=== PATIENT | female | born 1965 | race Caucasian/White ===

== ENCOUNTER 2019-03-28 08:37 | Emergency (ER) | payer BC ==
[2019-03-28 08:47] VITALS: BP 167/111; PULSE 70; RESP 20; TEMP 97.4
[2019-03-28] MEDS ORDERED: MORPHINE SULFATE 2 MG/ML SYRINGE IVP STA (09:18)
--- NOTE | 2019-03-28 09:48 | ED ---
Lower Extremity Injury HPI - General Chief Complaint: Extremity Injury, Lower Stated Complaint: Fall-leg/ankle injury Source: patient Mode of arrival: ambulatory Limitations: no limitations - History of Present Illness Initial Comments: 53-year-old female presenting for left ankle pain. Patient states that she was walking down stairs in her home when she slipped falling down a few steps. She states she fell on her bottom but mostly inverted her left ankle. Patient states she is pain swelling over the lateral aspect of patient denies numbness tingling or loss sensation of the ankle. States the pain increases when she ambulates, without radiation, sharp in nature. Patient denies any injury to the upper extremities or knees. Patient denies any injury to the head or neck. Patient states she has no back pain. Remaining review of systems negative. Upon arrival patient appears well no signs of acute distress. - Related Data Home Medications Medication Instructions Recorded Confirmed Eszopiclone [Lunesta] 3 mg PO HS 03/28/19 03/28/19 Levothyroxine Sodium [Synthroid] 88 mcg PO HS 03/28/19 03/28/19 Losartan Potassium 50 mg PO HS 03/28/19 03/28/19 Sertraline [Zoloft] 200 mg PO HS 03/28/19 03/28/19 Vortioxetine Hydrobromide 5 mg PO HS 03/28/19 03/28/19 [Trintellix] Allergies Allergy/AdvReac Type Severity Reaction Status Date / Time No Known Allergies Allergy Verified 03/28/19 09:38 Review of Systems ROS Statement: Those systems with pertinent positive or pertinent negative responses have been documented in the HPI. ROS Other: All systems not noted in ROS Statement are negative. Past Medical History Past Medical History: Thyroid Disorder History of Any Multi-Drug Resistant Organisms: None Reported Past Surgical History: Bariatric Surgery, Cholecystectomy Additional Past Surgical History / Comment(s): lap band 2007 Past Anesthesia/Blood Transfusion Reactions: No Reported Reaction Past Psychological History: Anxiety Smoking Status: Never smoker Past Alcohol Use History: None Reported Past Drug Use History: None Reported General Exam - General Exam Comments Initial Comments: General: The patient is awake and alert, in no distress, and does not appear acutely ill. Eye: +3 mm pupils are equal, round and reactive to light, extra-ocular movements are intact. No nystagmus. There is normal conjunctiva bilaterally. No signs of icterus. Ears, nose, mouth and throat: There are moist mucous membranes and no oral lesions. Cardiovascular: There is a regular rate and rhythm. No murmur, rub or gallop is appreciated. Respiratory: Lungs are clear to auscultation, respirations are non-labored, breath sounds are equal. No wheezes, stridor, rales, or rhonchi. Gastrointestinal: Soft, non-distended, non-tender abdomen without masses or organomegaly noted. There is no rebound or guarding present. Musculoskeletal: Normal inspection of the cervical thoracic and lumbar spine. There is no midline or paravertebral tenderness of the cervical thoracic or lumbar spine. Patient is able to fully range the C-spine with full flexion and extension and lateral flexion and rotation. On gross inspection of the ankles bilaterally there is soft tissue swelling of the left ankle or the lateral malleolus diffuse tenderness over the ankle joint including lateral and medial malleolus. Increasing pain with range of motion with inversion and eversion. Patient is able to fully range at the ankles bilaterally. Sensation intact proximal and distal to injury site equal comparison with the unaffected extremity. Patient does have a soft bristle compartments with +2 dorsalis pedis pulses equal and comparison bilaterally. No pain with compression of the distal tibia and fibula or palpation to the proximal tib-fib. No evidence of foot drop. Neurological: A&O x 3. CN II-XII intact grossly, There are no obvious motor or sensory deficits. Coordination appears grossly intact. Speech is normal. Skin: Skin is warm and dry and no rashes or lesions are noted. Psychiatric: Cooperative, appropriate mood & affect, normal judgment. Limitations: no limitations Course Vital Signs 03/28/19 08:44 Temperature 97.4 F L Pulse Rate 70 Respiratory 20 Rate Blood Pressure 167/111 O2 Sat by Pulse 99 Oximetry Medical Decision Making - Medical Decision Making Well-appearing 53-year-old female presenting for mechanical fall. Patient had an inversion injury of the left ankle. No evidence of acute fracture on imaging studies which were personally reviewed. Patient does not have any pain of the Lisfranc area no bruising on the plantar aspect of her left foot. Patient is able to weight-bear. This does increase the pain. Patient ankle was too large for an ankle stirrup and an Lamont bandage was placed instead. Patient provided prescription for crutches for comfort and given her primary care follow-up. If symptoms are persistent recommended repeat imaging studies and follow-up with with orthopedic surgery. Patient is provided work note. Rice instructions were discussed as well as importance of return parameters. Patient was discharged appearing well agreeable with care plan. Refused pain medications int he ER. Case was discussed with attending provided prior to discharge. Disposition Clinical Impression: Right ankle sprain, Ankle pain, Fall, Elevated blood pressure reading Disposition: HOME SELF-CARE Condition: Good Instructions (If sedation given, give patient instructions): Ankle Sprain (ED) Additional Instructions: Please use medication as discussed. Please follow-up with family doctor in the next 2 days, and if symptoms are persistent i recommend orthopedic evaluation. Please return to emergency room if the symptoms increase or worsen or for any other concerns. Is patient prescribed a controlled substance at d/c from ED?: No Referrals: Tiny Mariscal MD [Primary Care Provider] - 1-2 days Time of Disposition: 10:20
--- NOTE | 2019-03-28 09:49 | XR ---
EXAMINATION TYPE: XR ankle complete LT, XR foot complete LT DATE OF EXAM: 03/28/2019 CLINICAL HISTORY: Fall injury with pain. TECHNIQUE: Frontal, lateral and oblique images of the left ankle and foot are obtained. COMPARISON: None. FINDINGS: [id number] diffuse subcutaneous edema with more moderate to severe focal swelling ove r the lateral malleolus. There is no acute fracture/dislocation evident in the left ankle. The ankle mortise appears within normal limits. Moderate to large size inferior calcaneal spur. There is no acute fracture or dislocation evident in the left foot. The joint spaces in the left phil t are preserved. Mild diffuse subcutaneous edema. IMPRESSION: There is no acute fracture or dislocation in the left ankle or foot.
== END 2019-03-28 10:46 | disposition home or self-care (01) ==
LOC: EC 08:37
DX: S93.401A Sprain of unspecified ligament of right ankle, initial encounter (principal); R03.0 Elevated blood-pressure reading, without diagnosis of hypertension; E07.9 Disorder of thyroid, unspecified; F41.9 Anxiety disorder, unspecified; Z79.899 Other long term (current) drug therapy; W10.9XXA Fall (on) (from) unspecified stairs and steps, initial encounter; Y93.01 Activity, walking, marching and hiking; Y92.009 Unspecified place in unspecified non-institutional (private) residence as the place of occurrence of the external cause
CPT/HCPCS: 29515; 99283

== ENCOUNTER 2021-11-12 22:55 | Inpatient (IN) | payer BC ==
--- NOTE | 2021-11-12 23:52 | ED ---
General Adult HPI - General Chief complaint: Weakness Stated complaint: Blurred Vision Time Seen by Provider: 11/12/21 23:35 Source: patient, EMS Mode of arrival: EMS - History of Present Illness Initial comments: This patient is a 55-year-old woman who presents by ambulance to be evaluated for constellation of symptoms that started just before 9:30 tonight while she was talking with her . History is from the patient and who is at the bedside. He reports that she appeared to be breathing rapidly at the onset of symptoms. The patient noticed that her face and her left hand were tingling. She felt like she was having some double vision. The patient is having some left thigh spasms as well. Patient denied any pain. She has not noted any weakness. She was not having slurred speech but states she was having to think very hard about what she wanted to say. Onset/Timin -: minutes(s) Location: face Consistency: now resolved Improves with: none Worsens with: none Associated Symptoms: confusion, other Treatments Prior to Arrival: none - Related Data Home Medications Medication Instructions Recorded Confirmed Levothyroxine Sodium [Synthroid] 88 mcg PO DAILY 03/28/19 11/13/21 Acetaminophen [Tylenol Arthritis] 1,300 mg PO DAILY 11/13/21 11/13/21 Acetaminophen/Diphenhydramine 1 tab PO HS 11/13/21 11/13/21 [Tylenol PM 500-25mg] Ibuprofen [Motrin Ib] 800 mg PO Q8H PRN 11/13/21 11/13/21 Lisinopril [Zestril] 10 mg PO DAILY 11/13/21 11/13/21 Vortioxetine Hydrobromide 20 mg PO HS 11/13/21 11/13/21 [Trintellix] hydrOXYzine HCL [Atarax] 50 mg PO HS 11/13/21 11/13/21 hydroCHLOROthiazide [Hydrodiuril] 25 mg PO DAILY 11/13/21 11/13/21 Previous Rx's Medication Instructions Recorded Aspirin 81 mg PO DAILY 30 Days #30 11/14/21 Atorvastatin [Lipitor] 80 mg PO HS 30 Days #30 tab 11/14/21 Ticagrelor [Brilinta] 90 mg PO BID 30 Days #60 tab 11/14/21 Allergies Allergy/AdvReac Type Severity Reaction Status Date / Time egg AdvReac Nausea & Verified 11/13/21 11:43 Vomiting Review of Systems ROS Statement: Those systems with pertinent positive or pertinent negative responses have been documented in the HPI. ROS Other: All systems not noted in ROS Statement are negative. Constitutional: Denies: fever, chills, weakness Eyes: Reports: vision change. Denies: eye pain ENT: Denies: hearing loss Respiratory: Reports: dyspnea (Now resolved). Denies: cough, wheezes Cardiovascular: Denies: chest pain, palpitations, edema, syncope Gastrointestinal: Denies: abdominal pain, vomiting, diarrhea Genitourinary: Denies: dysuria, hematuria Musculoskeletal: Denies: back pain Skin: Denies: rash Neurological: Reports: paresthesias, confusion. Denies: headache, weakness Psychiatric: Reports: anxiety Past Medical History Past Medical History: Hypertension, Thyroid Disorder History of Any Multi-Drug Resistant Organisms: None Reported Past Surgical History: Bariatric Surgery, Cholecystectomy Additional Past Surgical History / Comment(s): lap band 2008 Past Anesthesia/Blood Transfusion Reactions: No Reported Reaction Past Psychological History: Anxiety Smoking Status: Never smoker Past Alcohol Use History: None Reported Past Drug Use History: None Reported - Past Family History Mother Family Medical History: CVA/TIA family Family Medical History: No Reported History General Exam General appearance: alert, in no apparent distress Head exam: Present: atraumatic, normocephalic Eye exam: Present: normal appearance, PERRL, EOMI. Absent: scleral icterus, conjunctival injection, nystagmus ENT exam: Present: mucous membranes dry Neck exam: Present: normal inspection, full ROM. Absent: tenderness, menin gismus Respiratory exam: Present: normal lung sounds bilaterally. Absent: respiratory distress, wheezes, rales, rhonchi, stridor Cardiovascular Exam: Present: regular rate, normal rhythm, normal heart sounds. Absent: systolic murmur, diastolic murmur, rubs, gallop GI/Abdominal exam: Present: soft. Absent: distended, tenderness, guarding, rebound, rigid, mass Extremities exam: Present: normal inspection, normal capillary refill. Absent: pedal edema, calf tenderness Back exam: Present: normal inspection. Absent: CVA tenderness (R), CVA tenderness (L) Neurological exam: Present: alert, oriented X3, CN II-XII intact. Absent: motor sensory deficit Skin exam: Present: warm, dry, intact, normal color. Absent: rash Course Vital Signs 11/12/21 11/13/21 11/13/21 23:04 00:06 01:00 Pulse Rate 80 74 83 Respiratory 20 18 18 Rate Blood Pressure 196/88 180/84 181/81 O2 Sat by Pulse 99 96 96 Oximetry 11/13/21 11/13/21 01:54 03:10 Pulse Rate 80 78 Respiratory 18 18 Rate Blood Pressure 181/98 155/84 O2 Sat by Pulse 99 95 Oximetry EKG Findings - EKG Results: EKG: interpreted by POLINA VARGAS, sinus rhythm (Rate 75 bpm), normal axis, normal QRS, normal ST/T Medical Decision Making - Medical Decision Making Patient's 55-year-old woman presenting with symptoms concerning for acute CVA. I patient has workup performed here. I did discuss case with stroke team. After discussion of the patient's case, it is felt that due to the time since onset of symptoms that TPA would represent increased risk of bleeding versus the possible benefit of administration. Patient is admitted for further neurologic evaluation and also patient started on antiplatelet therapy per the stroke team recommendations. - Lab Data Result diagrams: 11/13/21 07:00 11/13/21 07:00 Lab Results 11/12/21 11/12/21 11/12/21 Range/Units 23:54 23:54 23:54 WBC 6.2 (3.8-10.6) k/uL RBC 4.61 (3.80-5.40) m/uL Hgb 13.7 (11.4-16.0) gm/dL Hct 41.6 (34.0-46.0) % MCV 90.1 (80.0-100.0) fL MCH 29.6 (25.0-35.0) pg MCHC 32.9 (31.0-37.0) g/dL RDW 13.1 (11.5-15.5) % Plt Count 229 (150-450) k/uL MPV 8.6 Neutrophils % 54 % Lymphocytes % 29 % Monocytes % 7 % Eosinophils % 7 % Basophils % 0 % Neutrophils # 3.4 (1.3-7.7) k/uL Lymphocytes # 1.8 (1.0-4.8) k/uL Monocytes # 0.5 (0-1.0) k/uL Eosinophils # 0.4 (0-0.7) k/uL Basophils # 0.0 (0-0.2) k/uL PT 10.6 (9.0-12.0) sec INR 1.0 (<1.2) APTT 22.6 (22.0-30.0) sec Sodium 137 (137-145) mmol/L Potassium 4.4 (3.5-5.1) mmol/L Chloride 104 (98-107) mmol/L Carbon Dioxide 28 (22-30) mmol/L Anion Gap 5 mmol/L BUN 17 (7-17) mg/dL Creatinine 0.83 (0.52-1.04) mg/dL Est GFR (CKD-EPI)AfAm >90 (>60 ml/min/1.73 sqM) Est GFR (CKD-EPI)NonAf 80 (>60 ml/min/1.73 sqM) Glucose 107 H (74-99) mg/dL Calcium 8.4 (8.4-10.2) mg/dL Total Bilirubin 0.7 (0.2-1.3) mg/dL AST 28 (14-36) U/L ALT 21 (4-34) U/L Alkaline Phosphatase 54 (38-126) U/L Troponin I (0.000-0.034) ng/mL Total Protein 7.2 (6.3-8.2) g/dL Albumin 4.0 (3.5-5.0) g/dL 11/12/21 Range/Units 23:54 WBC (3.8-10.6) k/uL RBC (3.80-5.40) m/uL Hgb (11.4-16.0) gm/dL Hct (34.0-46.0) % MCV (80.0-100.0) fL MCH (25.0-35.0) pg MCHC (31.0-37.0) g/dL RDW (11.5-15.5) % Plt Count (150-450) k/uL MPV Neutrophils % % Lymphocytes % % Monocytes % % Eosinophils % % Basophils % % Neutrophils # (1.3-7.7) k/uL Lymphocytes # (1.0-4.8) k/uL Monocytes # (0-1.0) k/uL Eosinophils # (0-0.7) k/uL Basophils # (0-0.2) k/uL PT (9.0-12.0) sec INR (<1.2) APTT (22.0-30.0) sec Sodium (137-145) mmol/L Potassium (3.5-5.1) mmol/L Chloride (98-107) mmol/L Carbon Dioxide (22-30) mmol/L Anion Gap mmol/L BUN (7-17) mg/dL Creatinine (0.52-1.04) mg/dL Est GFR (CKD-EPI)AfAm (>60 ml/min/1.73 sqM) Est GFR (CKD-EPI)NonAf (>60 ml/min/1.73 sqM) Glucose (74-99) mg/dL Calcium (8.4-10.2) mg/dL Total Bilirubin (0.2-1.3) mg/dL AST (14-36) U/L ALT (4-34) U/L Alkaline Phosphatase (38-126) U/L Troponin I <0.012 (0.000-0.034) ng/mL Total Protein (6.3-8.2) g/dL Albumin (3.5-5.0) g/dL Critical Care Time Critical Care Time: Yes (30 minutes) Disposition Clinical Impression: Ischemic stroke Disposition: ADMITTED IP TO THIS HOSP Condition: Fair
[2021-11-13] LABS: Basophils % (A) 0 %; Eosinophils % (A) 7 %; HCT 41.6 % (34.0-46.0); HGB 13.7 gm/dL (11.4-16.0); Lymphocytes % (A) 29 %; MCH 29.6 pg (25.0-35.0); MCHC 32.9 g/dL (31.0-37.0); MCV 90.1 fL (80.0-100.0); Mean Platelet Volume 8.6; Monocytes % (A) 7 %; Neutrophils % (A) 54 %; Platelet Count 229 k/uL (150-450); RBC 4.61 m/uL (3.80-5.40); RDW 13.1 % (11.5-15.5); WBC 6.2 k/uL (3.8-10.6)
[2021-11-13 00:01] LABS: Eosinophils # (A) 0.4 k/uL (0-0.7); Lymphocytes # (A) 1.8 k/uL (1.0-4.8); Monocytes # (A) 0.5 k/uL (0-1.0); Neutrophils # (A) 3.4 k/uL (1.3-7.7)
[2021-11-13 00:16] LABS: Partial Thromboplastin Time 22.6 sec (22.0-30.0); Prothrombin Time 10.6 sec (9.0-12.0)
[2021-11-13 00:18] LABS: ALT 21 U/L (4-34); African American GFR (CKD) >90 (>60 ml/min/1.73 sqM); Anion Gap 5 mmol/L; Blood Urea Nitrogen 17 mg/dL (7-17); Calcium 8.4 mg/dL (8.4-10.2); Carbon Dioxide 28 mmol/L (22-30); Chloride 104 mmol/L (98-107); Glucose 107 mg/dL (74-99); Non-African American GFR(CKD) 80 (>60 ml/min/1.73 sqM); Sodium 137 mmol/L (137-145); Total Bilirubin 0.7 mg/dL (0.2-1.3); Total Protein 7.2 g/dL (6.3-8.2)
--- NOTE | 2021-11-13 00:19 | CT ---
EXAMINATION TYPE: CT brain wo con for TPA DATE OF EXAM: 11/13/2021 COMPARISON: None HISTORY: BLURRED VISION, AMS CT DLP: 1083.1 mGycm Automated exposure control for dose reduction was used. Ventricles have normal size. There is no mass effect or midline shift. There is no sign of intracrani al hemorrhage. No evidence of cerebral edema. Calvarium is intact. Mastoid sinuses appear normal. IMPRESSION: Negative unenhanced head CT scan.
[2021-11-13 00:22] LABS: AST 28 U/L (14-36); Alkaline Phosphatase 54 U/L (38-126); Potassium 4.4 mmol/L (3.5-5.1)
--- NOTE | 2021-11-13 00:46 | XR ---
EXAMINATION TYPE: XR chest 1V DATE OF EXAM: 11/13/2021 COMPARISON: NONE HISTORY: Altered mental status TECHNIQUE: Single view FINDINGS: Heart size is normal. Lungs are clear. Diaphragm is normal. Bony thorax is intact. There is a right-sided aortic arch. No heart failure. IMPRESSION: No active cardiopulmonary disease.
--- NOTE | 2021-11-13 00:51 | CT ---
EXAMINATION TYPE: CT angio head neck DATE OF EXAM: 11/13/2021 COMPARISON: None HISTORY: AMS, BLURRED VISION, TIINGLING LT ARM CT DLP: 807 mGycm Automated exposure control for dose reduction was used. CONTRAST: Performed with IV Contrast, patient injected with 65 mL of Isovue 370. Images obtained from the aortic arch to the vertex of the brain with IV contrast. There are Three-D p ostprocessed images. There is right-sided aortic arch with aberrant left subclavian artery which is posterior to the esoph joe. No evidence of aneurysm or dissection. There is arterial flow in both subclavian arteries. Ther e is arterial flow in the common internal and external carotid arteries bilaterally. There is wide pa tency of the carotid artery bifurcations. There is arterial flow in both vertebral arteries. There is arterial flow in the vertebral basilar artery system. There is no evidence of carotid or vertebral artery aneurysm or dissection. There is arterial flow in the anterior middle and posterior cerebral arteries. No mass effect. No arnie dence of intracranial aneurysm or neovascularity. There is severe stenosis of the proximal right post erior cerebral artery near the basilar artery. There is 9 mm segment of involvement. There is normal enhancement of the venous sinuses. 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 Normal CT angiogram of the neck. Aberrant left subclavian artery with right sided aortic arch.
[2021-11-13] MEDS ORDERED: MORPHINE SULFATE 4 MG/ML SYRINGE IV STA (01:22)
[2021-11-13] MEDS ORDERED: TICAGRELOR 90 MG TAB PO STA (02:09)
[2021-11-13] MEDS ORDERED: ASPIRIN 81 MG PO STA (02:09)
[2021-11-13] MEDS ORDERED: ACETAMINOPHEN TAB 325 MG TAB PO PRN (02:19)
[2021-11-13] MEDS: SODIUM CHLORIDE 0.9% 1,000 ML IV SCH ×3 (03:30→23:33)
--- NOTE | 2021-11-13 04:27 | P.HPIM ---
History of Present Illness H&P Date: 11/13/21 Chief Complaint: vision changes headache 55 year old female with hypertension patient comes in due to vision changes , tingling around the mouth and left hand, confusion . she denies any history of head injury, stroke, heart disease. afib, or blood clots. denies any recent illness. in the ED most of her symptoms were resolved, but for left eye visual field defect. workup in the ED showed subtotal occlusion of the post cerebral artery , patient was not given tpa in the ED. Review of Systems Pertinent positives as noted in HPI. All other systems were reviewed and are negative Past Medical History Past Medical History: Hypertension, Thyroid Disorder History of Any Multi-Drug Resistant Organisms: None Reported Past Surgical History: Bariatric Surgery, Cholecystectomy Additional Past Surgical History / Comment(s): lap band 2008 Past Anesthesia/Blood Transfusion Reactions: No Reported Reaction Past Psychological History: Anxiety Smoking Status: Never smoker Past Alcohol Use History: None Reported Past Drug Use History: None Reported - Past Family History family Family Medical History: No Reported History Medications and Allergies Home Medications Medication Instructions Recorded Confirmed Type Eszopiclone [Lunesta] 3 mg PO HS 03/28/19 03/28/19 History Levothyroxine Sodium [Synthroid] 88 mcg PO HS 03/28/19 03/28/19 History Losartan Potassium 50 mg PO HS 03/28/19 03/28/19 History Sertraline [Zoloft] 200 mg PO HS 03/28/19 03/28/19 History Vortioxetine Hydrobromide 5 mg PO HS 03/28/19 03/28/19 History [Trintellix] Allergies Allergy/AdvReac Type Severity Reaction Status Date / Time No Known Allergies Allergy Verified 03/28/19 09:38 Physical Exam Vitals: Vital Signs Pulse Resp BP Pulse Ox 11/13/21 01:54 80 18 181/98 99 11/13/21 01:00 83 18 181/81 96 11/13/21 00:06 74 18 180/84 96 11/12/21 23:04 80 20 196/88 99 Intake and Output 11/12/21 11/12/21 11/13/21 14:59 22:59 06:59 Other: Weight 138.346 kg Constitutional: No acute distress, conversant, pleasant Eyes: Anicteric sclerae, moist conjunctiva, Pupils equal round reactive to light ENMT: NC/AT Oropharynx clear, no erythema, or exudates Neck: Supple, FROM, no masses, or JVD No carotid bruits No thyromegaly Lungs: Clear to auscultation Clear to percussion Normal respiratory effort, no accessory muscle use Cardiovascular: Heart regular in rate and rhythm, No murmurs, gallops, or rubs No peripheral edema Abdominal: Soft Nontender, no guarding, rebound or rigidity Abdomen moving with respiration Normoactive bowel sounds No hepatomegaly, No splenomegaly No palpable mass No abdominal wall hernia noted Skin: Normal temperature, tone, texture, turgor No induration No subcutaneous nodules No rash, lesions No ulcers Extremities: No digital cyanosis No clubbing Pedal pulses intact and symmetrical Radial pulses intact and symmetrical No calf tenderness Psychiatric: Alert and oriented to person, place and time Appropriate affect fair judgement Neuro Muscles Strength 5/5 in all 4 extremities Sensation to light touch grossly present throughout Cranial nerves II-XII grossly intact, exxcept for CN II on the left with partial visual field defect No focal sensory deficits Lymphatics: no palpable cervical or supraclavicular , or inguinal lymph nodes Results CBC & Chem 7: 11/12/21 23:54 11/12/21 23:54 Labs: Abnormal Lab Results - Last 24 Hours (Table) 11/12/21 Range/Units 23:54 Glucose 107 H (74-99) mg/dL Assessment and Plan Assessment: ischemic stroke subtotal occlusion of the proximal right post cerebral artery incidental finding of right aortic arch plan allow permissive hypertension 24-48 hours neuro checks q2hr ASA, statin brilinta lipid panel a1c tsh echocardiogram fall precautions PT eval full code DVT PPX mechanical anticipated length of stay < 2 midnights
[2021-11-13] MEDS ORDERED: ONDANSETRON 4 MG/2 ML VIAL IVP STA (06:24)
[2021-11-13 07:19] LABS: Basophils % (A) 0 %; Eosinophils # (A) 0.1 k/uL (0-0.7); Eosinophils % (A) 1 %; HCT 40.9 % (34.0-46.0); HGB 13.1 gm/dL (11.4-16.0); Lymphocytes # (A) 0.6 k/uL (1.0-4.8); Lymphocytes % (A) 8 %; MCH 29.4 pg (25.0-35.0); MCHC 31.9 g/dL (31.0-37.0); MCV 92.1 fL (80.0-100.0); Mean Platelet Volume 8.2; Monocytes # (A) 0.1 k/uL (0-1.0); Monocytes % (A) 2 %; Neutrophils # (A) 6.7 k/uL (1.3-7.7); Neutrophils % (A) 89 %; Platelet Count 207 k/uL (150-450); RBC 4.44 m/uL (3.80-5.40); RDW 12.5 % (11.5-15.5); WBC 7.6 k/uL (3.8-10.6)
[2021-11-13 07:34] LABS: Potassium 4.3 mmol/L (3.5-5.1)
[2021-11-13 07:35] LABS: ALT 20 U/L (4-34); AST 22 U/L (14-36); African American GFR (CKD) >90 (>60 ml/min/1.73 sqM); Albumin 3.7 g/dL (3.5-5.0); Alkaline Phosphatase 57 U/L (38-126); Anion Gap 6 mmol/L; Blood Urea Nitrogen 13 mg/dL (7-17); Calcium 8.1 mg/dL (8.4-10.2); Carbon Dioxide 25 mmol/L (22-30); Chloride 104 mmol/L (98-107); Glucose 137 mg/dL (74-99); Non-African American GFR(CKD) >90 (>60 ml/min/1.73 sqM); Sodium 135 mmol/L (137-145); Total Bilirubin 0.6 mg/dL (0.2-1.3); Total Protein 6.6 g/dL (6.3-8.2)
[2021-11-13] MEDS: FAMOTIDINE 20 MG TAB PO SCH ×2 (07:45→19:57)
[2021-11-13] MEDS: DOCUSATE 100 MG CAP PO SCH ×3 (07:45→23:33)
--- NOTE | 2021-11-13 12:39 | CA ---
Transthoracic Echo Report Name: Gretta Brunson Age: 55 Gender: F : 1965 Exam Date: 11/13/2021 07:26 Exam Location: [facility] Ht (in): 66 Wt (lb): 305 Ordering Physician: Devon Basurto MD Attending/Referring Phys: Therapeutic Recreation Specialist Tiny Arreola RDCS Procedure CPT: Indications: Thrombus Cardiac Hx: No cardiac hx Technical Quality: Technically difficult study Contrast 1: Lumason Total Dose (mL): .25 Contrast 2: Total Dose (mL): MEASUREMENTS (Male / Female) Normal Values 2D ECHO LV Diastolic Diameter PLAX 2.8 cm 4.2 - 5.9 / 3.9 - 5.3 cm LV Systolic Diameter PLAX 1.7 cm IVS Diastolic Thickness 1.6 cm 0.6 - 1.0 / 0.6 - 0.9 cm LVPW Diastolic Thickness 1.8 cm 0.6 - 1.0 / 0.6 - 0.9 cm LV Relative Wall Thickness 1.2 RV Internal Dim ED PLAX 2.8 cm M-MODE Aortic Root Diameter MM 3.3 cm LA Systolic Diameter MM 3.3 cm LA Ao Ratio MM 1.0 MV E Point Septal Separation 0.3 cm AV Cusp Separation MM 2.1 cm DOPPLER AV Peak Velocity 143.9 cm/s AV Peak Gradient 8.3 mmHg MV Area PHT 3.6 cm MR Peak Velocity 155.1 cm/s MR Peak Gradient 9.6 mmHg Mitral E Point Velocity 109.1 cm/s Mitral A Point Velocity 98.4 cm/s Mitral E to A Ratio 1.1 MV Deceleration Time 210.6 ms TR Peak Velocity 137.6 cm/s TR Peak Gradient 7.6 mmHg Right Ventricular Systolic Press 12.0 mmHg FINDINGS Left Ventricle Severe LVH .Normal Left ventricular size, systolic function with no obvious regional wall motion abnormalities. Normal Left ventricular diastolic filling pattern. Left ventricular ejection fraction is estimated at 55-60 %. Right Ventricle The right ventricle is normal in size and function. Right Atrium The right atrium is normal in size. Left Atrium The left atrium is normal in size. Mitral Valve Structurally normal mitral valve without significant stenosis or prolapse. There is a trace of mitral regurgitation. Aortic Valve Structurally normal aortic valve without significant sclerosis or stenosis. There is no aortic regurgitation. Tricuspid Valve Structurally normal tricuspid valve without significant stenosis. Pulmonary artery systolic pressure is normal. Trace tricuspid regurgitation. Pulmonic Valve Structurally normal pulmonic valve without significant stenosis. There is no pulmonic regurgitation. Pericardium Normal pericardium without effusion. Aorta Normal aortic root dimension. CONCLUSIONS Normal LV systolic function Previewed by: Dr. Ilia Farias MD (Electronically Signed) Final Date: 13 November 2021 12:38
--- NOTE | 2021-11-13 15:34 | P.PN ---
Progress Note - Text Progress Note Date: 11/13/21 Patient seen and examined, her symptoms seemed to have improved. Left eye vision has improved. Speech is currently clear. Awaiting brain MRI, neurology evaluation.
--- NOTE | 2021-11-13 16:40 | P.CNNES ---
History of Present Illness Consult date: 11/13/21 Reason for Consult: left vision loss, possible stroke History of Present Illness: The patient is a 55-year-old female who is seen in neurologic consultation on November 13, 2021, via teleneurology. The patient reports that she was sitting at home having a conversation with her when she suddenly heard a "loud hissing" sound in her ears. She felt as if she might pass out. She states that she then stood up and felt "faint". She sat back down. Because of the sudden onset of these symptoms, the patient and her decided to come into the emergency department. Patient states that she has had similar symptoms when she has suspected that that she is hypoglycemic. The patient reports that she had a "halo" around her left eye. In the emergency department, the patient reports difficulty with word finding. In addition, the patient reports having a tingling sensation involving her face, lips, 2 fingers of her left hand and her left great toe. All of the symptoms resolved, after several hours, except the reported "halo" sensation. The patient states that this was still present until about 30 minutes ago. The visual symptoms resolved after the patient had "food, orange juice and Pepsi". Today, the patient reports having light sensitivity and a mild headache. Yesterday the headache was more severe. The patient denies a history of headaches. Workup in the emergency department revealed a CT scan of the brain, negative for acute hemorrhage and infarct. 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 Past Medical History Past Medical History: Hypertension, Thyroid Disorder History of Any Multi-Drug Resistant Organisms: None Reported Past Surgical History: Bariatric Surgery, Cholecystectomy Additional Past Surgical History / Comment(s): lap band 2007 Past Anesthesia/Blood Transfusion Reactions: No Reported Reaction Past Psychological History: Anxiety Smoking Status: Never smoker Past Alcohol Use History: None Reported Past Drug Use History: None Reported - Past Family History Mother Family Medical History: CVA/TIA family Family Medical History: No Reported History Medications and Allergies Home Medications Medication Instructions Recorded Confirmed Type Levothyroxine Sodium [Synthroid] 88 mcg PO DAILY 03/28/19 11/13/21 History Acetaminophen [Tylenol Arthritis] 1,300 mg PO DAILY 11/13/21 11/13/21 History Acetaminophen/Diphenhydramine 1 tab PO HS 11/13/21 11/13/21 History [Tylenol PM 500-25mg] Ibuprofen [Motrin Ib] 800 mg PO Q8H PRN 11/13/21 11/13/21 History Lisinopril [Zestril] 10 mg PO DAILY 11/13/21 11/13/21 History Vortioxetine Hydrobromide 20 mg PO HS 11/13/21 11/13/21 History [Trintellix] hydrOXYzine HCL [Atarax] 50 mg PO HS 11/13/21 11/13/21 History hydroCHLOROthiazide [Hydrodiuril] 25 mg PO DAILY 11/13/21 11/13/21 History Allergies Allergy/AdvReac Type Severity Reaction Status Date / Time egg AdvReac Nausea & Verified 11/13/21 11:43 Vomiting Physical Examination - Vital Signs Vital Signs: Vital Signs Temp Pulse Pulse Resp BP BP Pulse Ox 11/13/21 12:00 97.8 F 96 16 158/93 97 11/13/21 08:00 97.9 F 82 18 145/89 99 11/13/21 03:48 97.9 F 83 18 162/97 95 11/13/21 03:10 78 18 155/84 95 11/13/21 01:54 80 18 181/98 99 11/13/21 01:00 83 18 181/81 96 11/13/21 00:06 74 18 180/84 96 11/12/21 23:04 80 20 196/88 99 Intake and Output 11/12/21 11/13/21 11/13/21 22:59 06:59 14:59 Other: Voiding Method Toilet # Voids 1 Weight 138.346 kg Gen.: The patient is reclining in the bed. She is in no acute distress. She is obese. HEENT: Head is atraumatic, normocephalic. Fundus not visualized. There is no scleral icterus. Mucous membranes are moist. Neck: Supple without carotid bruits Heart: Regular rate and rhythm without murmur Lungs: Clear to auscultation Extremities: Without edema Neurological examination Mental status: The patient is awake, alert and oriented 3. Her speech is anisa ar. There is no dysarthria or aphasia. Judgment and insight are intact. Cranial nerves: Pupils are equal at 3 mm and reactive. Visual akhtar are full. Extraocular movements are intact. There is no nystagmus. Facial sensation is intact. There is no facial asymmetry. Hearing is grossly intact. Uvula and palate are midline. Shoulder shrug is symmetric. Tongue protrudes midline. Motor: Strength is 5/5 throughout. Sensation: Intact to light touch throughout. There is no extinction with double simultaneous stimulation. Coordination: Finger to nose, rapid alternating movements and [id number] testing is intact Deep tendon reflexes: 2+/4+ throughout. Plantar responses are flexor bilate rally. Gait: Not assessed Results - Laboratory Findings CBC and BMP: 11/13/21 07:00 11/13/21 07:00 Abnormal Lab Findings: Abnormal Labs 11/12/21 11/13/21 11/13/21 23:54 07:00 07:00 Lymphocytes # 0.6 L Sodium 135 L Glucose 107 H 137 H Calcium 8.1 L Assessment and Plan Assessment: 1. Acute neurologic deficits, resolved-possible transient ischemic attack versus hypertensive urgency versus hypoglycemia 2. 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 vascular surgery consultation or interventional neurology (through [facility]) for right posterior artery stenosis 2. Agree with Brilinta 90mg 3. High intensity statin should be initiated 4. MRI of brain 5. Stroke/TIA workup including 2-D echocardiogram, lipid panel, hemoglobin A1c Time with Patient: Greater than 30 (Spent 40 minutes with patient via telemedicine)
[2021-11-13] MEDS: TICAGRELOR 90 MG TAB PO SCH (19:57)
[2021-11-13] MEDS: ATORVASTATIN 80 MG TAB PO SCH (19:57)
[2021-11-13] MEDS ORDERED: VORTIOXETINE HYDROBROMIDE 10 MG TABLET PO SCH (21:00)
[2021-11-13] MEDS ORDERED: TEMAZEPAM 15 MG CAP PO SCH (21:00)
[2021-11-13] MEDS ORDERED: LOSARTAN 50 MG TAB PO SCH (21:00)
[2021-11-13] MEDS ORDERED: LEVOTHYROXINE 88 MCG TAB PO SCH (21:00)
[2021-11-14 04:26] VITALS: RESP 16
[2021-11-14] MEDS ORDERED: ASPIRIN 81 MG PO SCH (09:00)
[2021-11-14] MEDS: SODIUM CHLORIDE 0.9% 1,000 ML IV SCH (09:10)
[2021-11-14] MEDS ORDERED: lisinopriL 10 MG TAB PO SCH (09:30)
[2021-11-14] MEDS ORDERED: hydroCHLOROthiazide 25 MG TAB PO SCH (09:30)
[2021-11-14] MEDS: DOCUSATE 100 MG CAP PO SCH ×2 (09:40→13:26)
[2021-11-14] MEDS: TICAGRELOR 90 MG TAB PO SCH ×2 (09:41→17:40)
[2021-11-14] MEDS: FAMOTIDINE 20 MG TAB PO SCH (09:41)
[2021-11-14 10:58] LABS: Chol/HDL Ratio 4.63 Ratio; LDL Cholesterol,Calculated 157.4 mg/dL (0.0-131.0)
--- NOTE | 2021-11-14 12:12 | P.PN ---
Subjective Progress Note Date: 11/14/21 The patient is seen in neurologic follow-up on November 14, 2021, via teleneurology. She reports feeling much better today. She does continue to have a mild headache and abnormalities in her left vision. She describes a "variegated, silver, flashing lights". Objective - Vital Signs Vital signs: Vital Signs Temp 98.3 F 11/14/21 08:00 Pulse 71 11/14/21 08:00 Resp 16 11/14/21 08:00 BP 168/88 11/14/21 08:00 Pulse Ox 97 11/14/21 08:00 Intake & Output 11/13/21 11/14/21 11/14/21 18:59 06:59 18:59 Intake Total 120 840 Balance 120 840 Intake: Oral 120 840 Other: Voiding Method Toilet Toilet # Voids 3 - Exam Gen.: The patient is reclining in the bed. She is in no acute distress. HEENT: Head is atraumatic, normocephalic. Fundus not visualized. There is no scleral icterus. Mucous membranes are moist. Neurological examination Mental status: The patient is awake, alert and oriented 3. Her speech is clear. Cranial nerves: Pupils are equal at 3 mm and reactive. Visual akhtar are full to confrontation in the right eye. Visual field testing of the left eye is inconsistent. Extraocular movements are intact. There is no nystagmus. Facial sensation is intact. There is no facial asymmetry. Hearing is grossly intact. Uvula and palate are midline. Shoulder shrug is symmetric. Tongue protrudes midline. Motor: Strength is 5/5 throughout - Labs CBC & Chem 7: 11/13/21 07:00 11/13/21 07:00 Labs: Abnormal Lab Results - Last 24 Hours (Table) 11/14/21 Range/Units 08:23 Cholesterol 236.00 H (0.00-200.00) mg/dL LDL Cholesterol, Calc 157.4 H (0.0-131.0) mg/dL Assessment and Plan Assessment: 1. Acute neurologic deficits, resolved-possible transient ischemic attack versus hypertensive urgency versus hypoglycemia 2. 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 Current (11/14/21) neurological examination is normal with the exception of inconsistent visual deficits involving the left eye 4. Hyperlipidemia 5. History of hypertension 6. Obesity Plan: 1. Vascular surgery consultation or interventional neurology (through [facility]) for right posterior artery stenosis 2. Agree with Brilinta 90mg 3. High intensity statin should be initiated 4. Will repeat head CT 5. Healthy diet and exercise were discussed with the patient 6. If CT scan is negative and okay with vascular and primary team, patient is neurologically stable for discharge. She should follow up with neurology and/or vascular/interventional neurology as an outpatient 7. Patient is advised to follow up with ophthalmology regarding dilated visual examination Time with Patient: Less than 30 (Spent 25 minutes with patient via telemedicine)
--- NOTE | 2021-11-14 12:21 | CT ---
EXAMINATION TYPE: CT brain wo con DATE OF EXAM: 11/14/2021 COMPARISON: 11/13/2021 INDICATION: left visual loss DLP: 1158.4 mGycm, Automated exposure control for dose reduction was used. CONTRAST: None CT of the brain is performed utilizing 3 mm thick sections through the posterior fossa and 3 mm thick sections through the remaining calvarium. Study is not performed within 24 hours of arrival to the hospital. No abnormal hyperdensity is present to suggest an acute intracranial hemorrhage. No mass lesion is evident. No acute infarcts are evident. MRI can be performed as clinically indicated. Ventricles and sulci are appropriate for the patient age. Paranasal sinuses and mastoid air cells within the [id number] are clear. IMPRESSIONS: 1. No suspicious acute changes CT brain
--- NOTE | 2021-11-14 13:00 | P.PN ---
Subjective Progress Note Date: 11/14/21 Principal diagnosis: left eye blurred vision Still having occasional flashing in the left eye vision. No blurred vision. No weakness or numbness. Objective - Vital Signs Vital signs: Vital Signs Temp 98.3 F 11/14/21 08:00 Pulse 71 11/14/21 08:00 Resp 16 11/14/21 08:00 BP 168/88 11/14/21 08:00 Pulse Ox 97 11/14/21 08:00 Intake & Output 11/13/21 11/14/21 11/14/21 18:59 06:59 18:59 Intake Total 120 840 Balance 120 840 Intake: Oral 120 840 Other: Voiding Method Toilet Toilet # Voids 3 - Exam Constitutional: No acute distress, conversant, pleasant Eyes:Anicteric sclerae, moist conjunctiva, no lid-lag, PERRLA, ENMT: Oropharynx clear, no erythema, exudates Neck: Supple, FROM, no masses, or JVD, No carotid bruits, No thyromegaly Lungs: Clear to auscultation, Clear to percussion, Normal respiratory effort, no accessory muscle use Cardiovascular: Heart regular in rate and rhythm, No murmurs, gallops, or rubs, No peripheral edema Abdominal: Soft, Nontender, no guarding, rebound or rigidity, Normoactive bowel sounds, No hepatomegaly, No splenomegaly, No palpable mass Skin: Normal temperature, tone, texture, turgor, no induration, No subcutaneous nodules, No rash, lesions, No ulcers Extremities: No digital cyanosis, No clubbing, Pedal pulses intact and symmetrical, Radial pulses intact and symmetrical, No calf tenderness Psychiatric: Alert and oriented to person, place and time, appropriate affect, i ntact judgement Neuro: Muscles Strength 5/5 in all 4 extremities, Sensation to light touch grossly present throughout, Cranial nerves II-XII grossly intact, no focal sensory deficits - Labs CBC & Chem 7: 11/13/21 07:00 11/13/21 07:00 Labs: Abnormal Lab Results - Last 24 Hours (Table) 11/14/21 Range/Units 08:23 Cholesterol 236.00 H (0.00-200.00) mg/dL LDL Cholesterol, Calc 157.4 H (0.0-131.0) mg/dL Assessment and Plan Plan: Acute neurologic deficits, resolved-possible transient ischemic attack versus hypertensive urgency Repeat head CT negative for stroke Can't have MRI due to old IUD Vascular surgery consultation for right posterior artery stenosis Continue aspirin and Brilinta 90mg High intensity statin Healthy diet and exercise were discussed with the patient Echo with LVH normal EF A1c 5.5 Hyperlipidemia History of hypertension Obesity Resume meds Cleared by neurology for discharge, awaiting vascular evaluation
[2021-11-14 15:08] VITALS: BP 144/91; PULSE 76; TEMP 98
--- NOTE | 2021-11-14 15:31 | P.PN ---
Progress Note - Text Progress Note Date: 11/14/21 Reviewed CTA neck and brain- posterior cerebral artery disease. Carotid arteries are patent without stenosis. We do not intervene on intracerebral vasculature and patient will need an interventional neurologist follow up.
--- NOTE | 2021-11-14 16:02 | P.DS ---
Providers Date of admission: 11/13/21 02:22 Expected date of discharge: 11/14/21 Attending physician: Nelson Smith MD Consults: 11/13/21 02:25 Consult Physician Routine Consulting Provider: Chaz Contreras Consult Reason/Comments: Acute ischemic stroke, visual field deficit Do you want consulting provider notified?: Yes 11/13/21 17:18 Consult Physician Routine Consulting Provider: Cookie Young Consult Reason/Comments: right posterior artery stenosis Do you want consulting provider notified?: Yes Primary care physician: Tiny Mariscal MD Hospital Course: 55 year old female with hypertension hx presented to the ER due to vision changes, tingling around the mouth and left hand, confusion. No history of head injury, stroke, heart disease. afib, or blood clots. denies any recent illness. In the ED most of her symptoms were resolved, but continued to have left eye visual field defect. Workup in the ED with head CT was negative. CTA of the head and neck showed subtotal occlusion of the post cerebral artery. She was not given tpa in the ED. She was admitted. She was seen by neurology. Had an echocardiogram that showed LVH secondary to hypertension and obesity but EF n ormal. She could not have an MRI due to presence of an old IUD. She was seen by neurology who recommended aspirin and Brilinta. She was also started on high intensity statin. Her LDL cholesterol came back at around 160. A1c was 5.5. She was advised on high quality diet and exercise. She had a repeat computed tomography scan after 48 hours and that was negative for stroke. Due to the abnormal finding on the CTA she was seen by vascular surgery who advised outpatient interventional neurology follow-up. Patient was referred to [facility] for [facility]. She was discharged in stable condition. Time for discharge 35 minutes. Plan - Discharge Summary Discharge Rx Participant: No New Discharge Prescriptions: New Atorvastatin [Lipitor] 80 mg PO HS 30 Days #30 tab Aspirin 81 mg PO DAILY 30 Days #30 Ticagrelor [Brilinta] 90 mg PO BID 30 Days #60 tab Continue Levothyroxine Sodium [Synthroid] 88 mcg PO DAILY hydrOXYzine HCL [Atarax] 50 mg PO HS Ibuprofen [Motrin Ib] 800 mg PO Q8H PRN PRN Reason: Pain Acetaminophen/Diphenhydramine [Tylenol PM 500-25mg] 1 tab PO HS Vortioxetine Hydrobromide [Trintellix] 20 mg PO HS Lisinopril [Zestril] 10 mg PO DAILY Acetaminophen [Tylenol Arthritis] 1,300 mg PO DAILY hydroCHLOROthiazide [Hydrodiuril] 25 mg PO DAILY Discharge Medication List Levothyroxine Sodium [Synthroid] 88 mcg PO DAILY 03/28/19 [History] Acetaminophen [Tylenol Arthritis] 1,300 mg PO DAILY 11/13/21 [History] Acetaminophen/Diphenhydramine [Tylenol PM 500-25mg] 1 tab PO HS 11/13/21 [History] Ibuprofen [Motrin Ib] 800 mg PO Q8H PRN 11/13/21 [History] Lisinopril [Zestril] 10 mg PO DAILY 11/13/21 [History] Vortioxetine Hydrobromide [Trintellix] 20 mg PO HS 11/13/21 [History] hydrOXYzine HCL [Atarax] 50 mg PO HS 11/13/21 [History] hydroCHLOROthiazide [Hydrodiuril] 25 mg PO DAILY 11/13/21 [History] Aspirin 81 mg PO DAILY 30 Days #30 11/14/21 [Rx] Atorvastatin [Lipitor] 80 mg PO HS 30 Days #30 tab 11/14/21 [Rx] Ticagrelor [Brilinta] 90 mg PO BID 30 Days #60 tab 11/14/21 [Rx] Follow up Appointment(s)/Referral(s): Tiny Mariscal MD [Primary Care Provider] - 1-2 days
[2021-11-14] MEDS: ATORVASTATIN 80 MG TAB PO SCH (17:40)
== END 2021-11-14 17:50 | disposition home or self-care (01) | DRG 69 ==
LOC: EC 22:55 → 3SCARD 11-13 02:22
PROVIDERS: ADMIT Internal Medicine; ATTEND Internal Medicine
DX: G45.9 Transient cerebral ischemic attack, unspecified (principal); Z68.42 Body mass index [BMI] 45.0-49.9, adult; Q25.47 Right aortic arch; I16.0 Hypertensive urgency; R53.1 Weakness; H53.8 Other visual disturbances; E66.9 Obesity, unspecified; E78.5 Hyperlipidemia, unspecified; F41.9 Anxiety disorder, unspecified; H53.40 Unspecified visual field defects; H54.62 Unqualified visual loss, left eye, normal vision right eye; I11.9 Hypertensive heart disease without heart failure; I66.21 Occlusion and stenosis of right posterior cerebral artery; I77.1 Stricture of artery; Z79.890 Hormone replacement therapy; Z79.899 Other long term (current) drug therapy; Z82.3 Family history of stroke; Z98.84 Bariatric surgery status
CPT/HCPCS: 36415; 70450; 70496; 70498; 71045; 80053; 80061; 83036; 84484; 85025; 85610; 85730; 93005; 93306; 96374; 99285